=== PATIENT | male | born 1995 ===

== ENCOUNTER → 2022-01-16 12:02 | Outpatient (CLI) | payer OTHER, SELFPAY ==
--- NOTE | 2022-01-16 12:06 | DI.RAD.S_ITS ---
PROCEDURE: XR LUMBAR SPINE 2-3V INDICATIONS: back pain TECHNIQUE: 3 views of the lumbar spine were acquired. COMPARISON: None. FINDINGS: Bones: 5 [id number] vertebrae are present. There is normal bony alignment. No vertebral body compression fractures. No suspicious bony lesions. Soft tissues: Overlying bowel gas pattern is normal. No suspicious soft tissue calcifications. IMPRESSION: No radiographic abnormalities. Dictated by: Marla Shin M.D. on 01/16/2022 at 15:20 Approved by: Marla Shin M.D. on 01/16/2022 at 15:20
== END ==
PROVIDERS: PCP Family Medicine; Referring Provider Family Medicine; Visit Provider Family Medicine
DX: M54.9 Dorsalgia, unspecified (principal)
CPT/HCPCS: 72100

== ENCOUNTER → 2022-02-27 15:48 | Outpatient (CLI) | payer OTHER, SELFPAY ==
[2022-02-27 18:23] LABS: Add Manual Diff / Slide Review NO; Basophils Absolute Auto 0 /uL (0-100); Basophils Percent Auto 0.4 % (0-2); Eosinophils Absolute Auto 300 /uL (0-450); Eosinophils Percent Auto 2.9 % (2-4); Hematocrit 44.4 % (41-53); Hemoglobin 15.2 g/dL (13.5-17.5); Lymphocytes Absolute Auto 3600 /uL (1100-4500); Lymphocytes Percent Auto 34.5 % (25-40); Mean Corpuscular HGB Conc 34.2 % (30-36); Mean Corpuscular Hemoglobin 27.5 PG (26-34); Mean Corpuscular Volume 80.3 fL (80-100); Monocytes Absolute Auto 1000 /uL (0-900); Monocytes Percent Auto 9.4 % (3-14); Neutrophils Absolute Auto 5500 /uL (1500-7000); Neutrophils Percent Auto 52.8 % (50-75); Platelet Count 266 X10^3/uL (150-400); Red Blood Cell Count 5.52 X10^6/uL (4.5-5.9); Red Cell Distribution Width 14.4 % (11.6-14.8); White Blood Cell Count 10.5 X10^3/uL (4.5-11.0)
[2022-02-27 19:12] LABS: Alanine Aminotransferase 53 IU/L (<50); Albumin 4.4 g/dL (3.5-5.0); Albumin Globulin Ratio 1.3 (1.0-2.8); Alkaline Phosphatase 77 U/L (38-126); Aspartate Aminotransferase 42 IU/L (17-59); BUN Creatinine Ratio 12.4 (6-22); Bilirubin Total 0.2 mg/dL (0.2-1.3); Blood Urea Nitrogen 11 mg/dL (9-20); Calcium 9.5 mg/dL (8.4-10.2); Carbon Dioxide 26 mmol/L (22-32); Chloride 102 mmol/L (98-107); Estimated Glomerular Filt Rate > 60 mL/min (>60); Globulin 3.3 g/dL (1.7-4.1); Glucose 100 mg/dL (70-100); HEMOLYSIS < 15 (0-50); Hemoglobin A1C% w Est Avg Glu 5.7 % (4.0-6.0); Sodium 141 mmol/L (137-145); Total Protein 7.7 g/dL (6.3-8.2)
[2022-02-27 19:28] LABS: Prolactin 18.1 ng/mL (3.7-17.9)
[2022-03-08 16:59] LABS: Percent Free Testosterone 3.99 % (1.50-4.20); Testosterone Free 6.46 ng/dL (5.00-21.00); Testosterone Total 161.8 ng/dL (264.0-916.0)
== END ==
PROVIDERS: PCP Family Medicine; Referring Provider Family Medicine; Visit Provider Family Medicine
DX: E34.9 Endocrine disorder, unspecified (principal); F90.9 Attention-deficit hyperactivity disorder, unspecified type
CPT/HCPCS: 36415; 80053; 83036; 84146; 84402; 84403; 84443; 85025

== ENCOUNTER 2022-04-17 18:48 | Emergency (ER) | payer OTHER, SELFPAY ==
[2022-04-17 18:54] VITALS: BP 114/72; PULSE 134; RESP 17; TEMP 38.4; O2SAT 95; BMI 34.9
[2022-04-17] MEDS: ACETAMINOPHEN 325 MG TABLET 975 MG PO (19:17)
[2022-04-17] MEDS: IBUPROFEN 400 MG TABLET 800 MG PO (19:18)
--- NOTE | 2022-04-17 19:59 | ED_ITS ---
HPI - URI/Sore Throat General Chief Complaint: Upper Respiratory Symptoms Stated Complaint: Super sick Time Seen by Provider: 04/17/22 19:05 Source: patient Mode of arrival: Ambulatory History of Present Illness HPI Narrative: 27-year-old former smoker with history of ADHD presents with and young daughter and a chief complaint of mild headache, runny nose, nasal congestion, sore throat and a dry hacking cough for the past week or so. He is had nausea but no vomiting and denies abdominal pain, dysuria, frequency or urgency. He has body aches and has had fever. He has been exposed to other ill persons with similar symptoms. Related Data Home Medications Medication Instructions Recorded Confirmed dextroamphetamine-amphetamine PO DAILY 01/16/22 01/16/22 [Adderall] Previous Rx's Medication Instructions Recorded testosterone 20.25 mg/1.25 gram 2 pump topical DAILY #75 grams 03/12/22 (1.62 %) transdermal gel pump (AndroGel) Allergies Allergy/AdvReac Type Severity Reaction Status Date / Time No Known Drug Allergies Allergy Verified 04/17/22 18:54 Review of Systems Review of Systems Narrative: GENERAL: See HPI HEENT: See HPI RESPIRATORY: See HPI CARDIOVASCULAR: Denies chest pain, palpitations, orthopnea, edema, GASTROINTESTINAL: Denies nausea, vomiting, abdominal pain, diarrhea, constipation, melena. : Denies dysuria, frequency, incontinence, hematuria, urinary retention. MUSCULOSKELETAL: denies weakness, joint pain, or bony pain SKIN: Denies rash, skin lesions, or other NEUROLOGIC: Denies weakness, headache, numbness, change in speech, confusion, seizures, incoordination. PSYCHIATRIC: No concerning psychosocial issues. 12 point review of systems is negative except for those stated above Patient History Medical History (Updated 04/17/22 @ 20:23 by Mendoza Diaz DO) ADHD (~2019) Foot pain Hypotestosteronism Plantar fasciitis of left foot Surgical History Anesthesia History of tonsillectomy Family History Grandfather Parkinson's disease Grandmother Brain cancer Grandmother Diabetes mellitus Social History Smoking Status: Former smoker Smoking Status: Former smoker alcohol intake frequency: holidays/special occasions only Substance Use Type: does not use Exam Narrative Exam Narrative: GENERAL: [27] year old patient appears stated age. Well-developed patient, in mild distress. HEAD: Atraumatic. Normocephalic. EYES: Pupils equal round and reactive. Extraocular motions intact. No scleral icterus. No injection or drainage. ENT: Nose without bleeding, purulent drainage. Throat without erythema, tonsillar hypertrophy or exudate. Airway patent. NECK: Trachea midline. Non tender CARDIOVASCULAR: Regular rate and rhythm without murmurs, gallops, or rubs. RESPIRATORY: Clear to auscultation. Breath sounds equal bilaterally. No wheezes, rales, or rhonchi. GASTROINTESTINAL: Abdomen soft, non-tender, nondistended. EXTREMITIES: No edema or joint tenderness. BACK: Nontender without deformity or crepitance. No flank tenderness. NEURO: AOx3. SKIN: No rash or erythema of visible areas Initial Vital Signs Initial Vital Signs: Vital Signs Temperature 101.1 F H 04/17/22 18:54 Pulse Rate 134 H 04/17/22 18:54 Respiratory Rate 17 04/17/22 18:54 Blood Pressure 114/72 04/17/22 18:54 Pulse Oximetry 95 04/17/22 18:54 Oxygen Delivery Method 04/17/22 18:54 Course Orders Ordered: Discontinued Medications Acetaminophen (Acetaminophen 325 Mg Tablet) 975 mg PO NOW ONE Stop: 04/17/22 18:57 Last Admin: 04/17/22 19:17 Dose: 975 mg Documented By: NETTE Ibuprofen (Ibuprofen 400 Mg Tablet) 800 mg PO NOW ONE Stop: 04/17/22 18:57 Last Admin: 04/17/22 19:18 Dose: 800 mg Documented By: NETTE Vital Signs Vital signs: Vital Signs - 8 hr 04/17/22 18:54 Temperature 101.1 F H Pulse Rate 134 H Respiratory Rate 17 Blood Pressure 114/72 Pulse Oximetry 95 Oxygen Delivery Method Room Air MDM - URI/Sore Throat Lab Data Labs: Lab Results 04/17/22 Range/Units 19:08 SARS-CoV-2 (PCR) Negative (Negative) Influenza A (RT-PCR) Flu a positive H (NEGATIVE) Influenza B (RT-PCR) Flu b negative (NEGATIVE) RSV (PCR) Negative (Negative) MDM Narrative Medical decision making narrative: 27-year-old male former smoker without chronic medical history presents with upper respiratory symptoms for the past week. He shows no sign of respiratory distress and requires no supplemental oxygen. He has moist mucous membranes and demonstrates no signs of significant dehydration. Nasal swab is positive for flu and he is outside the time frame for the use of Tamiflu. Return precautions discussed and questions answered to his apparent satisfaction Discharge Plan Departure Patient Disposition: Home Clinical Impression: Influenza Instructions: DI for Influenza -- Adult Activity Restrictions/Additional Instructions: *You have been diagnosed with [various symptoms due to influenza A] *What to do: *Please consider the use of [id number] antihistamines such as cetirizine syrup which can dry the secretions that are causing many of these symptoms. As we discussed, a tsp of honey is a great option to help with cough if needed. Fever: *Fever is temperature over 101F, it is a common feature of most viral and ba cterial infections *Fever tends to come back once the Tylenol (acetaminophen) or Motrin (ibuprofen) wears off as these medications do not treat the underlying cause, just the fever itself *Treat the patient, not the number. If your child is running around and playing you don?t have to treat the fever, however, if they seem grumpy or uncomfortable it is reasonable to treat fever *Consider alternating between Tylenol and Motrin so you will be giving medications prior to the previous dose wearing off: Tylenol 15mg/kg = Motrin 10mg/kg= * your history and physical exam are very reassuring and there is no indication that the symptoms are due to a bacterial infection, therefore there is no indication for antibiotics. *Please follow up with your primary care provider in 2-3 days, call for an adrianne ointment. Let them know you were seen in the Emergency Department and that we ask that you be seen in follow up. We will electronically transmit a record of today's note if your PCP is in our system *If you do not have a primary care provider please contact the [facility] Resource line at [phone]. They will ask some questions about your medical history and help get you set up with a doctor in the community. *Return to Emergency Department if you should have any new, worsening or concerning symptoms increased work of breathing with flaring of nostrils, using belly to breathe, persistent vomiting, or other bothersome symptoms Prescriptions: No Action testosterone [AndroGel] 20.25 mg/1.25 gram (1.62 %) gel in metered-dose pump 2 pump topical DAILY Qty: 75 1RF Rx Instructions: apply 1 pump amount over max area of EACH upper arm and shoulder dextroamphetamine-amphetamine [Adderall] PO DAILY Referrals: Cuate Christianson, [Primary Care Provider] - Visit Report Forms: Patient Portal/API
[2022-04-17 20:01] VITALS: PULSE 112; TEMP 37.5; O2SAT 95
[2022-04-17 20:01] LABS: Influenza A - CEPHEID Flu A POSITIVE (NEGATIVE); Influenza B - CEPHEID Flu B NEGATIVE (NEGATIVE); Respiratory Syncytial Virus Negative (Negative)
[2022-04-17 20:03] LABS: COVID-19 CEPHEID 4-PLEX PCR Negative (Negative)
== END 2022-04-17 20:34 | disposition home or self-care (01) ==
PROVIDERS: Emergency Provider Emergency Medicine; PCP Family Medicine
DX: J10.1 Influenza due to other identified influenza virus with other respiratory manifestations (principal)
CPT/HCPCS: 0241U; 99283

== ENCOUNTER → 2022-07-19 09:27 | Outpatient (CLI) | payer OTHER, SELFPAY ==
--- NOTE | 2022-07-19 09:29 | DI.MRI.S_ITS ---
PROCEDURE: MR BRAIN (PITUITARY) WWO CON INDICATIONS: Rule out Pituitary Adenoma TECHNIQUE: Noncontrast sagittal and axial FLAIR, axial gradient echo, axial diffusion and ADC through the brain. Thin-slice sagittal and coronal T1 spin echo, coronal T2 fast spin echo through the pituitary. After the administration contrast, optional dynamic coronal T1 spin echo, thin-slice coronal and sagittal T1 spin echo images through the pituitary fossa; axial and coronal and sagittal T1 spin echo with fat saturation through the brain. COMPARISON: None. FINDINGS: Image quality: Artifact from dental hardware. Pituitary Gland: Normal configuration and appearance of the pituitary gland. No focus of abnormally diminished or delayed enhancement in the pituitary parenchyma to suggest the presence of an adenoma. Normal position of the intrinsic T1 shortening in the neurohypophysis. No evidence of other sellar or suprasellar abnormality. CSF Spaces: Ventricles are normal in size and shape. Basal cisterns are patent. No extra-axial fluid collections. Brain: No intracranial bleeds or mass effects. No abnormal intracranial enhancement. Tafoya-white matter interface is intact. Diffusion weighted images demonstrate no acute ischemic insults. Brainstem is normal. Normal intravascular flow voids are present. Skull and face: Calvarial marrow is normal in signal. Orbits appear normal. Sinuses: Sinuses and mastoids are clear. IMPRESSION: Normal MRI of the brain and pituitary. Dictated by: Jorge A Giles M.D. on 07/21/2022 at 8:54 Approved by: Jorge A Giles M.D. on 07/21/2022 at 8:58
== END ==
PROVIDERS: PCP Family Medicine; Referring Provider Family Medicine; Visit Provider Family Medicine
DX: R79.89 Other specified abnormal findings of blood chemistry (principal)
CPT/HCPCS: 70553; A9579

== ENCOUNTER → 2022-08-23 09:14 | Outpatient (CLI) | payer OTHER, SELFPAY ==
[2022-08-23 10:24] LABS: Add Manual Diff / Slide Review NO; Basophils Absolute Auto 0 /uL (0-100); Basophils Percent Auto 0.5 % (0-2); Eosinophils Absolute Auto 200 /uL (0-450); Eosinophils Percent Auto 2.5 % (2-4); Hematocrit 47.4 % (41-53); Hemoglobin 15.8 g/dL (13.5-17.5); Lymphocytes Absolute Auto 3500 /uL (1100-4500); Lymphocytes Percent Auto 37.6 % (25-40); Mean Corpuscular HGB Conc 33.4 % (30-36); Mean Corpuscular Hemoglobin 26.9 PG (26-34); Mean Corpuscular Volume 80.5 fL (80-100); Monocytes Absolute Auto 700 /uL (0-900); Monocytes Percent Auto 7.1 % (3-14); Neutrophils Absolute Auto 4900 /uL (1500-7000); Neutrophils Percent Auto 52.3 % (50-75); Platelet Count 277 X10^3/uL (150-400); Red Blood Cell Count 5.89 X10^6/uL (4.5-5.9); Red Cell Distribution Width 14.9 % (11.6-14.8); White Blood Cell Count 9.4 X10^3/uL (4.5-11.0)
[2022-08-23 10:41] LABS: Alanine Aminotransferase 56 IU/L (<50); Albumin 4.3 g/dL (3.5-5.0); Albumin Globulin Ratio 1.3 (1.0-2.8); Alkaline Phosphatase 84 U/L (38-126); Aspartate Aminotransferase 48 IU/L (17-59); BUN Creatinine Ratio 17.8 (6-22); Bilirubin Total 0.7 mg/dL (0.2-1.3); Blood Urea Nitrogen 16 mg/dL (9-20); Calcium 9.6 mg/dL (8.4-10.2); Carbon Dioxide 27 mmol/L (22-32); Chloride 102 mmol/L (98-107); Estimated Glomerular Filt Rate > 60 mL/min (>60); Globulin 3.2 g/dL (1.7-4.1); Glucose 91 mg/dL (70-100); HEMOLYSIS < 15 (0-50); Potassium 4.4 mmol/L (3.4-5.1); Sodium 138 mmol/L (137-145); Total Protein 7.5 g/dL (6.3-8.2)
[2022-08-29 04:44] LABS: Percent Free Testosterone 2.75 % (1.50-4.20); Testosterone Free 8.14 ng/dL (5.00-21.00); Testosterone Total 295.9 ng/dL (264.0-916.0)
== END ==
PROVIDERS: PCP Family Medicine; Referring Provider Family Medicine; Visit Provider Family Medicine
DX: E34.9 Endocrine disorder, unspecified (principal)
CPT/HCPCS: 36415; 80053; 84146; 84402; 84403; 85025

== ENCOUNTER → 2022-09-18 15:13 | Outpatient (CLI) | payer OTHER, SELFPAY ==
--- NOTE | 2022-09-18 15:14 | DI.RAD.S_ITS ---
PROCEDURE: XR HAND RT MIN 3V INDICATIONS: Hand pain TECHNIQUE: 3 views of the hand(s) acquired. COMPARISON: None. FINDINGS: Bones: No fractures or dislocations. Carpal bones are normally aligned. No suspicious bony lesions. Soft tissues: No suspicious soft tissue calcifications. IMPRESSION: No visualized acute fracture or dislocation. However, if clinical concern and/or pain persist, short interval imaging followup in 7-10 days is recommended, as occult injury cannot be definitively excluded. Dictated by: Jo-Ann Ramos M.D. on 09/18/2022 at 16:42 Approved by: Jo-Ann Ramos M.D. on 09/18/2022 at 16:43
== END ==
PROVIDERS: PCP Family Medicine; Referring Provider Nurse Practitioner Family; Visit Provider Nurse Practitioner Family
DX: M79.641 Pain in right hand (principal)
CPT/HCPCS: 73130